=== PATIENT | male | born 1950 | race African-American/Black ===

== ENCOUNTER 2018-03-05 13:24 | Outpatient (CLI) | payer MEDICARE, OTHER ==
[~2018-03-05] VITALS: Ht 175.3 cm; Wt 69.4 kg
[~2018-03-05 13:24] MED LIST: ASPIR 8181 MG ORAL; CELLCEPT250 MG ORAL; CENTRUM SILVER1 EAC4 PO; DIAZEPAM10 MG ORAL; GENGRAF100 MG PO; GLIPIZIDE5 MG ORAL; HYDRALAZINE HCL25 M1 ORAL; MAGNESIUM OXID400 M1 ORAL; NORMODYNE300 MG ORAL; OMEPRAZOLE20 M2 ORAL; OXYCODONE HCL30 MG ORAL; PREDNISONE5 MG ORAL; SENSIPAR30 MG ORAL; SIMVASTATIN20 MG ORAL; TAMSULOSIN HCL0.4 MG ORAL; VITAMIN C500 M1 ORAL
[2018-03-05 15:00] VITALS: BP 139/85
--- NOTE | 2018-03-05 15:17 | GI Initial Consult Note ---
History of Present Illness General Date patient seen: Mar 05, 2018 Time patient seen: 15:12 Referring physician: VINCE Reason for Consultation: EGD/colonoscopy Present Illness HPI 67 year old male patient presents today for routine EGD/colonoscopy screening. Denies any general GI symptoms; no abdominal pain, no N/V/D or constipation. Had last colonoscopy back [place] [address] Nath, noted with colonic polyps. Denies any unintentional weight loss or changes in dietary habits. Patient has unsteady gait and is a fall risk. Home Meds Reported Medications Diazepam* (DIAZEPAM*) 10 Mg Tablet, 10 MG ORAL NEEDED, TAB 0 Refills 05/17/15 Ascorbic Acid* (VITAMIN C*) 500 Mg Tablet, 1000 MG ORAL DAILY, #30 TAB 0 Refills 05/17/15 Mu-Vits-Min Th/Lycopene/Lutein (CENTRUM SILVER TABLET) 1 Each Tablet, 1 EACH PO DA, TAB 05/17/15 Oxycodone Hcl (OXYCODONE HCL) 30 Mg Tablet, 30 MG ORAL Q8 PRN for For Pain, TAB 05/17/15 Labetalol HCl (Labetalol HCl) 300 Mg Tab, 300 MG ORAL BID, TAB 15 Magnesium Oxide (MAGNESIUM OXIDE) 400 Mg Tablet, 400 MG ORAL BIDAC, #30 TAB 0 Refills 05/17/15 Aspirin* (ASPIR 81*) 81 Mg Tablet.dr, 81 MG ORAL DAILY, TAB 05/17/15 Cinacalcet* (SENSIPAR*) 30 Mg Tablet, 30 MG ORAL DAILY, TAB 15 Omeprazole (OMEPRAZOLE) 20 Mg Capsule.dr, 20 MG ORAL DAILY, CAP 05/17/15 Hydralazine Hcl* (HYDRALAZINE HCL*) 25 Mg Tablet, 25 MG ORAL BID, TAB 0 Refills 05/17/15 Simvastatin (ZOCOR) 20 Mg Tablet, 20 MG ORAL BEDTIME, TAB 05/17/15 Tamsulosin Hcl (TAMSULOSIN HCL*) 0.4 Mg Cap.er.24h, 0.4 MG ORAL BEDTIME, CAP 15 Glipizide* (GLIPIZIDE*) 5 Mg Tablet, 10 MG ORAL BIDAC, TAB 05/17/15 Prednisone (Prednisone) 5 Mg Tab, 5 MG ORAL DAILY, #10 TAB 0 Refills 05/17/15 Mycophenolate Mofetil (Cellcept) 250 Mg Cap, 100 MG ORAL HS, CAP 05/17/15 Mycophenolate Mofetil (Cellcept) 250 Mg Cap, 1000 MG ORAL DAILY, CAP 05/17/15 Cyclosporine, Modified (GENGRAF) 100 Mg Capsule, 75 MG PO HS, CAP 05/17/15 Cyclosporine, Modified (GENGRAF) 100 Mg Capsule, 100 MG PO DA, CAP 05/17/15 Med list reviewed/reconciled: Yes Allergies: Coded Allergies: NO KNOWN ALLERGIES (Unverified Allergy, Unknown, 05/16/15) Patient History History Provided By: Patient, Medical Record PMH Narrative Back Pain HTN Diabetes Mellitus with neuropathy BPH HLD CVA 2008 Rt kidney transplant Lt AV B. cataract Pertinent Family History: none Social History Narrative quit ETOH and tobacco use no drug and no coffee Review of Systems All Other Systems: negative except mentioned in HPI Physical Exam Vital Signs Date Time Temp Pulse Resp B/P (MAP) Pulse Ox O2 Delivery O2 Flow Rate FiO2 03/05/18 15:00 97.7 93 18 139/85 99 97.7 Sp02 EP Interpretation: reviewed, normal General Appearance: well appearing, no apparent distress, alert Head: normocephalic EENT: PERRL/EOMI, normal ENT inspection Neck: supple Respiratory: normal breath sounds, no respiratory distress Cardiovascular: normal rate Gastrointestinal: normal inspection, non tender, soft, normal bowel sounds, non -distended Rectal: deferred Genitourinary: deferred Musculoskeletal: normal inspection, back normal Neurologic: normal inspection, alert, oriented x3, responsive Psychiatric: normal inspection, judgement/insight normal, memory normal Skin: normal inspection, normal color, no rash, warm/dry, palpation normal, well hydrated Lymphatic: normal inspection, no adenopathy GI: Plan Problems: (1) Colonoscopy planned (2) Hx of colonic polyp (3) HTN (hypertension) (4) Diabetes mellitus (5) BPH (benign prostatic hyperplasia) (6) HLD (hyperlipidemia) (7) Cataract Plan EGD/colonoscopy scheduled 03/09/18. - CLD & (Nulytely/Suprep/Movi-Prep) prep instructions given and acknowledged by patient. - NPO @ LA day prior procedure explained. Discussed with Dr. Mohan. Thank you for this patient referral, we will follow. The patient was seen and examined at bedside and all new and available data was reviewed in the patients chart. I agree with the above findings, impression and plan. (Patient seen earlier today. Signature stamp does not reflect patient encounter time.). - MD Akosua RaymundoSoutheast Arizona Medical CenterMarkie VALDOVINOS Mar 05, 2018 15:17
[2018-03-05] MEDS ORDERED: RESTASIS1 EACH BOTH EYES (15:45)
[2018-03-05] MEDS ORDERED: JANUVIA100 MG ORAL (15:45)
[2018-03-05] MEDS ORDERED: NIFEDIPINE ER60 M2 ORAL (15:45)
[2018-03-05] MEDS ORDERED: ERYTHROMYCIN3.5 GM BOTH EYES (15:45)
[2018-03-05] MEDS ORDERED: VIAGRA100 MG PO (15:45)
[2018-03-05] MEDS ORDERED: GENGRAF100 MG PO (15:45)
[2018-03-05] MEDS ORDERED: PROCTOSOL-HC1 APPLIC TOPIC (15:45)
== END 2018-03-05 13:54 | disposition home or self-care (01) ==
LOC: PAN 13:24
DX: Z12.11 Encounter for screening for malignant neoplasm of colon (principal); Z86.010 Personal history of colon polyps; I10 Essential (primary) hypertension; N40.0 Benign prostatic hyperplasia without lower urinary tract symptoms; E78.5 Hyperlipidemia, unspecified; H26.9 Unspecified cataract; E11.40 Type 2 diabetes mellitus with diabetic neuropathy, unspecified; Z86.73 Personal history of transient ischemic attack (TIA), and cerebral infarction without residual deficits; Z94.0 Kidney transplant status
CPT/HCPCS: 99202

== ENCOUNTER 2018-03-11 09:04 | Day surgery (SDC) | payer MEDICARE, OTHER ==
[2018-03-11] VITALS (9 sets, daily range): BP systolic 136–168; BP diastolic 72–90
[~2018-03-11] VITALS: Ht 175.3 cm; Wt 70.8 kg
--- NOTE | 2018-03-11 06:50 | Anethesia Preoperative Eval ---
Anesthesia Pre-op PMH/ROS General Date of Evaluation: Mar 11, 2018 Time of Evaluation: 06:45 Anesthesiologist: rigo ASA Score: ASA 3 Mallampati Score Class I : Soft palate, uvula, fauces, pillars visible Class II: Soft palate, uvula, fauces visible Class III: Soft palate, base of uvula visible Class IV: Only hard plate visible Mallampati Classification: Class II Surgeon: kenyon Diagnosis: hx/o colon polyps, abdominal pain Surgical Procedure: egd/colonoscopy Anesthesia History: none Social History: smoking, alcohol use Family History: no anesthesia problems Allergies: Coded Allergies: ACETAMINOPHEN (Verified Allergy, Unknown, 03/05/18) AMITRIPTYLINE (Verified Allergy, Unknown, 03/05/18) FERROUS SULFATE (Verified Allergy, Unknown, 03/05/18) FUROSEMIDE (Verified Allergy, Unknown, 03/05/18) NO KNOWN ALLERGIES (Unverified Allergy, Unknown, 05/16/15) TRAMADOL (Verified Allergy, Unknown, 03/05/18) Medications: see eMAR Past Medical History Cardiovascular: Reports: HTN, other - hyperlipidemia Gastrointestinal/Genitourinary: Reports: ESRD, other - bph, colon polyps, abdominal pain, kidney transplantation, hep c Neurologic/Psychiatric: Reports: CVA, depression/anxiety, other - diabetic nneuropathy Endocrine: Reports: DM HEENT: Reports: cataract (L), cataract (R) Musculoskeletal/Integumentary: Reports: OA Anesthesia Pre-op Phys. Exam Physician Exam Constitutional: NAD Neurologic: CN 2-12 intact Cardiovascular: RRR Respiratory: CTA Gastrointestinal: S/NT/ND Airway Exam Mallampati Score: Class II MO: full Neck: flexible TMD: 2fb ROM: limited Teeth: missing Anesthesia Pre-op A/P Risk Assessment & Plan Assessment: asa4 Plan: mac Status Change Before Surgery: No Pre-Antibiotics Drug: Aria Kan MD Mar 11, 2018 06:50
[~2018-03-11 09:04] MED LIST changes: +Atropine Inj 1mg/10ml Syr IV PRN; +DiphenhydrAMINE 50mg/ml Inj IVP PRN; +ERYTHROMYCIN3.5 GM BOTH EYES; +JANUVIA100 MG ORAL; +Midazolam 2mg/2ml Inj IVP PRN; +NIFEDIPINE ER60 M2 ORAL; +PROCTOSOL-HC1 APPLIC TOPIC; +RESTASIS1 EACH BOTH EYES; +VIAGRA100 MG PO; +fentaNYL 100 mcg/2 mL IV PRN
[2018-03-11 10:25] LABS: BASOPHILS % (AUTO) 0.6 % (0.0-2.0); EOSINOPHILS % (AUTO) 0.1 % (0.0-3.0); HEMATOCRIT 38.2 % (42.0-52.0); LYMPHOCYTES % (AUTO) 15.1 % (20.0-45.0); MEAN CORPUSCULAR VOLUME 85 FL (80-99); MONOCYTES % (AUTO) 5.7 % (1.0-10.0); NEUTROPHILS % (AUTO) 78.4 % (45.0-75.0); PLATELET COUNT 220 K/UL (150-450); RED BLOOD COUNT 4.47 M/UL (4.70-6.10); RED CELL DISTRIBUTION WIDTH 13.2 % (11.6-14.8); WHITE BLOOD COUNT 6.7 K/UL (4.8-10.8)
[2018-03-11 10:40] LABS: ANION GAP 9 mmol/L (5-15); BLOOD UREA NITROGEN 12 mg/dL (7-18); CALCIUM 9.2 MG/DL (8.5-10.1); CARBON DIOXIDE 28 MMOL/L (21-32); CHLORIDE 102 MMOL/L (98-107); CREATININE 1.1 MG/DL (0.55-1.30); POTASSIUM 3.7 MMOL/L (3.5-5.1); SODIUM 139 MMOL/L (136-145)
[2018-03-11 10:44] LABS: ALANINE AMINOTRANSFERASE 24 U/L (12-78); ALBUMIN 3.7 G/DL (3.4-5.0); ALBUMIN/GLOBULIN RATIO 0.9 (1.0-2.7); ALKALINE PHOSPHATASE 117 U/L (46-116); ASPARTATE AMINO TRANSFERASE 17 U/L (15-37); BILIRUBIN,TOTAL 0.3 MG/DL (0.2-1.0)
[2018-03-11] MEDS ORDERED: Lidocaine 1% MPF 10mg/ml 5ml ONE (11:00)
[2018-03-11] MEDS ORDERED: Propofol 200mg/20ml IV ONE (11:00)
--- NOTE | 2018-03-11 11:33 | Short Stay Surgery H&P ---
History of Present Illness History of Present Illness Chief Complaint see recent office note HPI Greg Mosqueda is a 67 year old male who was admitted on for Hx Of Colon Polypse, Abdominal Pain Patient History Allergies: Coded Allergies: ACETAMINOPHEN (Verified Allergy, Unknown, 03/05/18) AMITRIPTYLINE (Verified Allergy, Unknown, 03/05/18) FERROUS SULFATE (Verified Allergy, Unknown, 03/05/18) FUROSEMIDE (Verified Allergy, Unknown, 03/05/18) NO KNOWN ALLERGIES (Unverified Allergy, Unknown, 05/16/15) TRAMADOL (Verified Allergy, Unknown, 03/05/18) Medication History Scheduled Ascorbic Acid* (Vitamin C*), 1,000 MG ORAL DAILY, (Reported) Aspirin* (Aspir 81*), 81 MG ORAL DAILY, (Reported) Cinacalcet* (Sensipar*), 30 MG ORAL DAILY, (Reported) Cyclosporine (Restasis), 1 DROP BOTH EYES EVERY 12 HOURS, (Reported) Cyclosporine, Modified (Gengraf), 100 MG PO BID, (Reported) Diazepam* (Diazepam*), 10 MG ORAL BID, (Reported) Glipizide* (Glipizide*), 10 MG ORAL BIDAC, (Reported) Labetalol HCl (Labetalol HCl), 300 MG ORAL BID, (Reported) Magnesium Oxide (Magnesium Oxide), 400 MG ORAL BIDAC, (Reported) Mu-Vits-Min Th/Lycopene/Lutein (Centrum Silver Tablet), 1 EACH PO DA, (Reported) Mycophenolate Mofetil (Cellcept), 1,000 MG ORAL BID, (Reported) Nifedipine* (Nifedipine Er*), 60 MG ORAL BID, (Reported) Omeprazole (Omeprazole), 20 MG ORAL DAILY, (Reported) Prednisone (Prednisone), 5 MG ORAL DAILY, (Reported) Sildenafil Citrate (Viagra), 100 MG PO DAILY, (Reported) Simvastatin (Zocor), 20 MG ORAL BEDTIME, (Reported) Sitagliptin (Januvia), 100 MG ORAL DAILY, (Reported) Tamsulosin Hcl (Tamsulosin Hcl*), 0.4 MG ORAL BEDTIME, (Reported) Scheduled PRN Oxycodone Hcl (Oxycodone Hcl), 30 MG ORAL Q8 PRN for For Pain, (Reported) Miscellaneous Medications Erythromycin Base (Erythromycin*), 1 APPLIC BOTH EYES, (Reported) Hydrocortisone (Proctosol-Hc), 1 APPLIC TOPIC, (Reported) Discontinued Medications Cyclosporine, Modified (Gengraf), 100 MG PO DA, (Reported) Discontinued Reason: Medication dose changed Cyclosporine, Modified (Gengraf), 75 MG PO HS, (Reported) Discontinued Reason: Medication dose changed Hydralazine Hcl* (Hydralazine Hcl*), 25 MG ORAL BID, (Reported) Discontinued Reason: MD discontinued med Mycophenolate Mofetil (Cellcept), 100 MG ORAL HS, (Reported) Discontinued Reason: Medication dose changed Physical Exam Vital Signs Last Vital Signs Date Time Temp Pulse Resp B/P (MAP) Pulse Ox O2 Delivery O2 Flow Rate FiO2 03/11/18 10:04 97.8 87 20 168/89 (115) 100 97.8 03/11/18 09:48 Room Air Labs Laboratory Tests Test 03/11/18 10:10 White Blood Count 6.7 K/UL (4.8-10.8) Red Blood Count 4.47 M/UL (4.70-6.10) L Hemoglobin 12.0 G/DL (14.2-18.0) L Hematocrit 38.2 % (42.0-52.0) L Mean Corpuscular Volume 85 FL (80-99) Mean Corpuscular Hemoglobin 26.9 PG (27.0-31.0) L Mean Corpuscular Hemoglobin Concent 31.5 G/DL (32.0-36.0) L Red Cell Distribution Width 13.2 % (11.6-14.8) Platelet Count 220 K/UL (150-450) Mean Platelet Volume 5.9 FL (6.5-10.1) L Neutrophils (%) (Auto) 78.4 % (45.0-75.0) H Lymphocytes (%) (Auto) 15.1 % (20.0-45.0) L Monocytes (%) (Auto) 5.7 % (1.0-10.0) Eosinophils (%) (Auto) 0.1 % (0.0-3.0) Basophils (%) (Auto) 0.6 % (0.0-2.0) Sodium Level 139 MMOL/L (136-145) Potassium Level 3.7 MMOL/L (3.5-5.1) Chloride Level 102 MMOL/L (98-107) Carbon Dioxide Level 28 MMOL/L (21-32) Anion Gap 9 mmol/L (5-15) Blood Urea Nitrogen 12 mg/dL (7-18) Creatinine 1.1 MG/DL (0.55-1.30) Estimat Glomerular Filtration Rate > 60 mL/min (>60) Glucose Level 90 MG/DL (74-106) Calcium Level 9.2 MG/DL (8.5-10.1) Total Bilirubin 0.3 MG/DL (0.2-1.0) Aspartate Amino Transf (AST/SGOT) 17 U/L (15-37) Alanine Aminotransferase (ALT/SGPT) 24 U/L (12-78) Alkaline Phosphatase 117 U/L (46-116) H Total Protein 7.7 G/DL (6.4-8.2) Albumin 3.7 G/DL (3.4-5.0) Globulin 4.0 g/dL Albumin/Globulin Ratio 0.9 (1.0-2.7) L Carcinoembryonic Antigen Pending CA 19-9 Antigen Pending Plan Attestation Are the patient's medical conditions optimized for surgery? Coy Mohan MD Mar 11, 2018 11:33
--- NOTE | 2018-03-11 11:33 | Pre-Procedure Note/Attestation ---
Pre-Procedure Note/Attestation Complete Prior to Procedure Planned Procedure: not applicable Procedure Narrative: esophagogastroduodenoscopy and colonoscopy, Indications for Procedure Pre-Operative Diagnosis: screening colon, GERD Attestation I attest that I discussed the nature of the procedure; its benefits; risks and complications; and alternatives (and the risks and benefits of such alternatives ), prior to the procedure, with the patient (or the patient's legal telemarketing sales representative). I attest that, if there was a reasonable possibility of needing a blood transfusion, the patient (or the patient's legal telemarketing sales representative) was given the [facility] standardized written summary, pursuant to the Luis Manuel Natalie Blood Safety Act ([place] Health and Safety Code # 1645, as amended). I attest that I re-evaluated the patient just prior to the surgery and that there has been no change in the patient's H&P, except as documented below: Coy Mohan MD Mar 11, 2018 11:33
--- NOTE | 2018-03-11 11:56 | Endoscopy Procedure Note ---
Endoscopy Procedure Note General Indication for Procedure: screening colonoscopy, GERD Procedures Performed: EGD, colonoscopy Operative Findings/Diagnosis: gastritis, diverticulosis Specimen: yes Pt Tolerated Procedure Well: Yes Estimated Blood Loss: none Anesthesia Anesthesiologist: wellington Anesthesia: MAC Inserted Devices Implant(s) used?: No Quality Quality of Bowel Preparation: Good Did scope reach the cecum?: Yes Was there any complications?: No GI Core Measures 50 yrs or older w/o bx or poly: No 10yrs. F/U not recommended: Yes If not recommended, why?: Above average risk 10 yrs. F/U needed: Yes 18 years or older w/prev. colo: Yes <3yrs. since last colonoscopy: No Coy Mohan MD Mar 11, 2018 11:56
--- NOTE | 2018-03-11 14:22 | Immediate Post-Op Evaluation ---
Immediate Post-Op Evalulation Immediate Post-Op Evalulation Procedure: egd/colonoscopy Date of Evaluation: Mar 11, 2018 Time of Evaluation: 12:12 IV Fluids: 300ml 0.9ns Blood Products: none Estimated Blood Loss: negligible Blood Pressure Systolic: 136 Blood Pressure Diastolic: 76 Pulse Rate: 66 Respiratory Rate: 18 O2 Sat by Pulse Oximetry: 100 Temperature (Fahrenheit): 98.0 Pain Score (1-10): 0 Nausea: No Vomiting: No Complications none Patient Status: awake, reacts, patent Hydration Status: adequate Drug: Aria Kan MD Mar 11, 2018 14:22
--- NOTE | 2018-03-11 14:24 | 48 Hour Post Anesthesia Eval ---
Post Anesthesia Evaluation Procedure: egd/colonoscopy Date of Evaluation: Mar 11, 2018 Time of Evaluation: 12:14 Blood Pressure Systolic: 136 0: 72 Pulse Rate: 86 Respiratory Rate: 18 Temperature (Fahrenheit): 98.0 O2 Sat by Pulse Oximetry: 100 Airway: patent Nausea: No Vomiting: No Pain Intensity: 0 Hydration Status: adequate Cardiopulmonary Status: stable Mental Status/LOC: patient returned to baseline Post-Anesthesia Complications: none Follow-up care needed: N/A Aria Traylor MD Mar 11, 2018 14:24
--- NOTE | 2018-03-11 17:30 | Procedure Note ---
DATE OF PROCEDURE: 03/11/2018 SURGEON: Coy Mohan M.D. ANESTHESIOLOGIST: Dr. Cervantes. REFERRING PHYSICIAN: Ramandeep Alexandre M.D. PROCEDURE: Upper endoscopy with biopsy and colonoscopy. ANESTHESIA: Per Dr. Cervantes. INSTRUMENT: Olympus adult flexible upper endoscope and colonoscope. INDICATION: 1. Screening colonoscopy evaluation. 2. History of colonic polyps. 3. Gastritis and GERD. The procedure, risks, benefits, and possible consequences, including hemorrhage, aspiration, perforation and infection, and alternative treatments, were explained to the patient/legal guardian by Dr. Coy Mohan and the patient/legal guardian understood and accepted these risks. DESCRIPTION OF PROCEDURE: After informed consent was obtained and the patient was adequately sedated, Olympus upper endoscope was advanced from the mouth into the second portion of the duodenum and retroflexion was performed in the stomach. The patient had diffuse gastritis. Random biopsy from antrum and body of the stomach was obtained to rule out H. pylori infection. At this time, the upper endoscope was retrieved. The patient was turned over for colonoscopy. First, rectal exam was performed, which was positive for internal hemorrhoids. Then the scope was advanced from the rectum into the cecum documented by the appendiceal orifice, ileocecal valve, and right upper quadrant palpation. Quality of prep was good. The patient had scattered diverticulosis. No other findings. No polyps. No mass. Retroflexion of rectum showed evidence of medium-sized internal hemorrhoids. SUMMARY OF FINDINGS: 1. Gastritis, status post biopsy. 2. Diverticulosis. 3. Internal hemorrhoids. RECOMMENDATIONS: Follow up biopsy results and treat accordingly. I want to thank Dr. Ramandeep Alexandre for this kind referral. Coy Mohan M.D. DR: Charli JOB#: [id number] CC: Ramandeep Alexandre M.D.; Fax#: [phone]
== END 2018-03-11 13:20 | disposition home or self-care (01) ==
LOC: GAS 09:04
DX: Z12.11 Encounter for screening for malignant neoplasm of colon (principal); K64.8 Other hemorrhoids; K57.30 Diverticulosis of large intestine without perforation or abscess without bleeding; Z86.010 Personal history of colon polyps; K29.50 Unspecified chronic gastritis without bleeding; K21.9 Gastro-esophageal reflux disease without esophagitis; E11.22 Type 2 diabetes mellitus with diabetic chronic kidney disease; I12.0 Hypertensive chronic kidney disease with stage 5 chronic kidney disease or end stage renal disease; N18.6 End stage renal disease; Z94.0 Kidney transplant status; E11.40 Type 2 diabetes mellitus with diabetic neuropathy, unspecified; Z79.84 Long term (current) use of oral hypoglycemic drugs; E78.5 Hyperlipidemia, unspecified; F32.9 Major depressive disorder, single episode, unspecified; F41.9 Anxiety disorder, unspecified; M19.90 Unspecified osteoarthritis, unspecified site; Z86.73 Personal history of transient ischemic attack (TIA), and cerebral infarction without residual deficits; Z86.19 Personal history of other infectious and parasitic diseases; Z79.82 Long term (current) use of aspirin; Z88.6 Allergy status to analgesic agent; Z88.8 Allergy status to other drugs, medicaments and biological substances
CPT/HCPCS: 36415; 43239; 80053; 82378; 82962; 85025; 93005; G0105; J2704; 94003; 94150

== ENCOUNTER 2018-03-26 14:12 | Outpatient (CLI) | payer MEDICARE, OTHER ==
[~2018-03-26 14:12] MED LIST changes: -Atropine Inj 1mg/10ml Syr IV PRN; -DiphenhydrAMINE 50mg/ml Inj IVP PRN; -Midazolam 2mg/2ml Inj IVP PRN; -fentaNYL 100 mcg/2 mL IV PRN
[2018-03-26 15:36] VITALS: BP 166/99
--- NOTE | 2018-03-27 09:58 | GI Progress Note ---
Assessment/Plan Problems: (1) Weight loss ICD Codes: R63.4 - Abnormal weight loss SNOMED: 59320461, [id number] (2) Diabetes mellitus ICD Codes: E11.9 - Type 2 diabetes mellitus without complications SNOMED: 22822557 Status: stable Status Narrative Seen with Dr. Mohan. Assessment/Plan SUMMARY OF FINDINGS: 1. Gastritis, status post biopsy. 2. Diverticulosis. 3. Internal hemorrhoids. RECOMMENDATIONS: Follow up biopsy results and treat accordingly. >> negative for H. Pylori RTC prn repeat colon x5 years The patient was seen and examined at bedside and all new and available data was reviewed in the patients chart. I agree with the above findings, impression and plan. (Patient seen earlier today. Signature stamp does not reflect patient encounter time.). - Coy Mohan MD Subjective Gastrointestinal/Abdominal: Reports: no symptoms Subjective on strict diet has decreased weight Objective Last 24 Hour Vital Signs Date Time Temp Pulse Resp B/P (MAP) Pulse Ox O2 Delivery O2 Flow Rate FiO2 03/26/18 15:36 98.2 82 16 166/99 96 98.2 General Appearance: WD/WN, no apparent distress, alert Cardiovascular: normal rate Respiratory/Chest: normal breath sounds, no respiratory distress Abdominal Exam: normal bowel sounds, non tender, soft Extremities: normal range of motion, non-tender Maryellen South NP Mar 27, 2018 09:58
== END 2018-03-26 14:42 | disposition home or self-care (01) ==
LOC: PAN 14:12
DX: R63.4 Abnormal weight loss (principal); E11.9 Type 2 diabetes mellitus without complications; K29.70 Gastritis, unspecified, without bleeding; K57.90 Diverticulosis of intestine, part unspecified, without perforation or abscess without bleeding; K64.8 Other hemorrhoids
CPT/HCPCS: 99212